=== PATIENT | male | born 1965 | race Caucasian/White ===

== ENCOUNTER → 2021-07-17 10:23 | Outpatient (REF) | payer BC, SELFPAY | LOC: ANHLAB 10:23 | PROVIDERS: PCP Family Medicine; Visit Provider Nurse Practitioner | DX: C44.311 Basal cell carcinoma of skin of nose (principal) | CPT/HCPCS: 88305; 88331 ==

== ENCOUNTER 2021-07-19 01:30 | Day surgery (SDC) | payer BC, SELFPAY ==
[2021-07-12 10:51] VITALS: BMI 34.5
--- NOTE | 2021-07-19 10:00 | P.PNAN_ITS ---
Anes - Initial Pre Proc Eval Procedure: Operation Date: 07/19/21 10:30 Proposed Procedures p Screening Colonoscopy - Tobi Tracy MD Date/Time: 07/19/21 10:00 Surgeon: Tobi Tracy MD Pre Op Diagnosis: neoplasm screening Patient Data Age: 55 Gender: M Height: 1.85 m Weight: 118.8 kg Allergies Allergy/AdvReac Type Severity Reaction Status Date / Time No Known Allergies Allergy Verified 07/17/21 10:19 Home Medications Medication Instructions Recorded Confirmed Type lisinopril 20 1 tablet PO DAILY #90 tablet 03/07/21 07/19/21 Rx mg-hydrochlorothiazide 12.5 mg tablet naproxen sodium 220 mg tablet 220 mg PO DAILY tablet 07/17/21 07/19/21 History Patient hx anesthesia problems: none Family hx anesthesia problems: none PMFSH Past Medical History Medical History Chronic left shoulder pain COPD (chronic obstructive pulmonary disease) Essential (primary) hypertension Family History Family History Mother Diabetes mellitus Social History Social History Smoking packs per day: 1 Smoking cigarettes per day: 20.0 Years smoked: 40 Smoking pack-years: 40.00 Smoking status: Current every day smoker Tobacco type: cigarettes Alcohol intake: current Substance use: never Substance use type: does not use Living arrangements: with family Additional living arrangements comments: Gender identity (if verbalized by the patient): Male Anes - Eval Final PreProcedure Day of Procedure 07/19/21 10:00 Patient weight: obese Heart: regular rate and rhythm Lungs: wheezes Airway: Mallampati scale class II and other (edentulous) Neurological: alert and oriented Last oral intake: >/= 8 hours ASA classification: III Emergent: no Anesthetic plan: proceed Anesthesia type and monitoring: general GIVS and standard monitoring Informed Consent: The patient's anesthetic plan and its attendant risks and b enefits were discussed with the patient/family/POA. Questions were solicited and answers provided to the satisfaction of the patient/family/POA.
[2021-07-19 10:01] VITALS: BP 155/80; PULSE 69; RESP 18; TEMP 36.6; O2SAT 97
[2021-07-19] MEDS: LACTATED RINGERS 1,000 ML 150 ML IV CONT (10:08)
--- NOTE | 2021-07-19 10:24 | PM.HPGS ---
History of Present Illness History of Present Illness Consent: Risks, benefits, and alternatives have been discussed and questions answered. Patient agrees to proceed with procedure. Chief complaint: neoplasm screening Narrative: Watson De Jesus is a 55 year old male here for first screening colonoscopy Review of Systems Constitutional: Constitutional: Denies headache(s) and Denies weakness Eyes: Eyes: Denies blurry vision ENT: Reports Normal hearing present, Denies headache(s) and Denies neck pain Cardiovascular: Cardiovascular: Denies chest pain and Denies dyspnea Respiratory: Respiratory: Denies dyspnea Gastrointestinal: Gastrointestinal: Reports no additional gastrointestinal complaints Genitourinary: Genitourinary: Denies dysuria Musculoskeletal: Musculoskeletal: Denies neck pain Integumentary/Breasts: Skin/Breast: Denies dry skin Neurologic: Reports Normal hearing present, Denies headache(s) and Denies weakness Psychiatric: Psychiatric: Denies anxiety Endocrine: Endocrine: Denies change in body appearance Hematologic/Lymphatic: Hematologic/Lymphatic: Denies easy bleeding Allergic/Immunologic: Allergic/Immunologic: Denies urticaria [facility] Past Medical History Medical History (Updated 07/19/21 @ 10:24 by Tobi Tracy MD) Chronic left shoulder pain Colon cancer screening COPD (chronic obstructive pulmonary disease) Essential (primary) hypertension Family History Family History Mother Diabetes mellitus Social History Social History Smoking packs per day: 1 Smoking cigarettes per day: 20.0 Years smoked: 40 Smoking pack-years: 40.00 Smoking status: Current every day smoker Tobacco type: cigarettes Alcohol intake: current Substance use: never Substance use type: does not use Living arrangements: with family Additional living arrangements comments: Gender identity (if verbalized by the patient): Male Meds Home Medications and Allergies Home Medications Medication Instructions Recorded Confirmed Type lisinopril 20 1 tablet PO DAILY #90 tablet 03/07/21 07/19/21 Rx mg-hydrochlorothiazide 12.5 mg tablet naproxen sodium 220 mg tablet 220 mg PO DAILY tablet 07/17/21 07/19/21 History Allergies Allergy/AdvReac Type Severity Reaction Status Date / Time No Known Allergies Allergy Verified 07/17/21 10:19 Vital Signs Vital Signs - 24 hr 07/19/21 10:01 Temperature 97.9 F Pulse Rate 69 Respiratory Rate 18 Blood Pressure 155/80 H Pulse Oximetry 97 Exam Const: General: comfortable and no acute distress HENMT: General nose exam: Normal nares present Eyes: General: appearance normal, both eyes and all related structures Neck: Neck: no JVD Resp: Auscultation: clear to auscultation bilaterally Cardio: Rate: regular rate Rhythm: regular rhythm GI: Inspection: non-distended GI Palp: Yes Soft to palpation Skin: General skin exam: normal color Neuro: General: gait normal Speech: normal speech Extrem: General: normal to inspection Psych: Mental Status: mental status grossly normal Assessment and Plan Assessment and plan (1) Colon cancer screening: Code(s): Z12.11 - Encounter for screening for malignant neoplasm of colon Status: Acute Assessment and Plan: colonoscopy
[2021-07-19 10:47] VITALS: BP 103/68; PULSE 59; RESP 20; O2SAT 97
[2021-07-19 10:57] VITALS: BP 106/70; PULSE 59; RESP 19; O2SAT 96
[2021-07-19 11:07] VITALS: BP 124/80; PULSE 57; RESP 21; O2SAT 96
== END 2021-07-19 11:20 | disposition home or self-care (01) ==
PROVIDERS: PCP Family Medicine; Visit Provider Internal Medicine Gastroenterology
PROC: 0DJD8ZZ Inspection of Lower Intestinal Tract, Via Natural or Artificial Opening Endoscopic (ICD-10-PCS; CPT 45378; principal; 2021-07-19 10:30)
DX: Z12.11 Encounter for screening for malignant neoplasm of colon (principal); K57.30 Diverticulosis of large intestine without perforation or abscess without bleeding; K64.8 Other hemorrhoids; K63.5 Polyp of colon; K64.4 Residual hemorrhoidal skin tags; J44.9 Chronic obstructive pulmonary disease, unspecified; I10 Essential (primary) hypertension; F17.210 Nicotine dependence, cigarettes, uncomplicated; E66.9 Obesity, unspecified; Z68.34 Body mass index [BMI] 34.0-34.9, adult
CPT/HCPCS: 45385; 88305; J2704; J7120

== ENCOUNTER 2022-08-06 07:22 | Outpatient (CLI) | payer BC, SELFPAY ==
--- NOTE | ~2022-08-06 | CT_ITS ---
EXAMINATION: CT lung screening DATE: 08/06/2022 07:47 INDICATION: Personal history nicotine dependence, current smoker with 45 pack year history TECHNIQUE: Computed tomography (CT) of the chest was performed without intravenous contrast. The dose -length product (DLP) was 217.69 mGy-cm. Automated exposure control and iterative reconstruction tech [id number] outdoors were employed. COMPARISON: 08/19/2018 FINDINGS: There is mild emphysema. There are groundglass opacities in a mid and lower lung zone distr ibution with slight worsening since the comparison examination. No suspicious pulmonary nodules are i dentified. No pleural effusion or pneumothorax. No pathologically enlarged thoracic lymph nodes are i dentified. The heart size is normal. There is calcified coronary artery atherosclerosis. Cholelithias is is noted. IMPRESSION: 1. Lung-RADS category 1S: Negative. Continue annual screening with noncontrast low-dose chest CT in 1 2 months. 2. Chronic interstitial lung disease with a mid and lower lung zone predominance with slight interval worsening. Differential is as previously described including nonspecific interstitial pneumonia (NSI P) and desquamative interstitial pneumonia (DIP). Reviewed, dictated and finalized at location B. IMPRESSION: 1. Lung-RADS category 1S: Negative. Continue annual screening with noncontrast low-dose chest CT in 12 months. 2. Chronic interstitial lung disease with a mid and lower lung zone predominanc e with slight interval worsening. Differential is as previously described inclu ding nonspecific interstitial pneumonia (NSIP) and desquamative interstitial pn eumonia (DIP).
--- NOTE | 2022-08-06 13:48 | WPDPFTINT ---
PFT Procedure Performed PFT Procedure Performed Spirometry with Pre/Post Bronchodilator Plethysmography (Lung Vol) Diffusing Cap (DLCO) Flow Vol Loop PFT Interpretation Lung volumes were measured with the body plethysmography method. Lung volumes are unremarkable. Spirometry showed diminished expiratory flow rates and a normal FEV1 to FVC ratio of 81%. Following administration of a bronchodilator there was no significant increase in expiratory flow rates. Lung diffusion capacity is moderately reduced at 47% predicted. The flow volume loop is unremarkable. The restrictive pattern on spirometry in the face of a normal total lung capacity is consistent with a nonspecific pattern. In comparison to previous study in 2018, the post bronchodilator FVC is now greater by approximately 200 mL as is the FEV1 by an similar amount. Lung diffusion capacity is essentially unchanged. Impression: Nonspecific pattern; With moderately reduced lung diffusion capacity.
--- NOTE | 2022-08-06 13:53 | WPDSIXMINUTE ---
Six Minute Walk Procedure Procedure Performed Pulmonary Stress Test (6 min walk) Six Minute Walk Six Minute Walk: This 6 minute walk test was carried out with the patient breathing ambient air. The pre-walk oxyhemoglobin saturation was 96 %. The patient walked over 304 m with no stops during testing. During the walk the oxyhemoglobin saturation remained in the range of 89% to 99%. The perceived dyspnea on the Syl scale at baseline was 2 and decreased to 3 at the end of testing. Impression: No evidence of significant oxyhemoglobin desaturation on this testing.
== END 2022-08-06 07:23 | disposition home or self-care (01) ==
PROVIDERS: PCP Family Medicine; Visit Provider Internal Medicine Pulmonary Disease
DX: Z12.2 Encounter for screening for malignant neoplasm of respiratory organs (principal); Z87.891 Personal history of nicotine dependence; R06.00 Dyspnea, unspecified; J40 Bronchitis, not specified as acute or chronic; J84.9 Interstitial pulmonary disease, unspecified
CPT/HCPCS: 71271; 94060; 94618; 94726; 94729

== ENCOUNTER 2022-09-17 11:42 | Outpatient (CLI) | payer BC, SELFPAY ==
[2022-09-17 18:42] LABS: Hemoglobin A1C 6.1 % (<5.7)
[2022-09-17 19:10] LABS: Vitamin D 25 Hydroxy 39.6 ng/mL
== END 2022-09-17 11:43 | disposition home or self-care (01) ==
LOC: ANHGOSHLAB 11:46
PROVIDERS: PCP Family Medicine; Visit Provider Family Medicine
DX: R73.03 Prediabetes (principal); E55.9 Vitamin D deficiency, unspecified
CPT/HCPCS: 36415; 82306; 83036

== ENCOUNTER 2023-01-03 16:43 | Outpatient (CLI) | payer BC, SELFPAY ==
--- NOTE | 2023-01-28 18:52 | WPDSLEEPSTUD ---
Sleep Study Date of Study: 01/03/23 Ordering Provider: Watson Shook MD Interpreting Physician: Yin Thomason MD Sleep Study Type: Polysomnogram Height: 1.85 m Weight: 118.388 kg Body Mass Index: 34.4 Neck Circumference (inches): 18 [place]: 8 Reason for Sleep Study Hypersomnolence Sleep History Watson De Jesus is a 57-year-old man with frequent loud snoring. He wakes up during the middle of the night. He has excessive daytime sleepiness. He rarely awakens from sleep feeling short of breath. He rarely awakens at night with heartburn, belching or coughing. he occasionally has trouble sleeping with a cold. He rarely wakes up gasping for breath at night. He occasionally has breathing problems at night observed by others. He rarely sweats excessively at night. He rarely notices his heart pounding or beating irregularly at night. He occasionally falls asleep during the day, occasionally falls asleep involuntarily, very rarely falls asleep while driving. He does not have loss of muscle tone with strong emotion. He rarely has daytime difficulties due to excessive sleepiness. He does not feel paralyzed on waking or falling asleep. He rarely has vivid dreamlike scenes on waking or falling asleep. He does not feel afraid to go to sleep. He rarely has nightmares. He rarely remembers his dreams. He occasionally has racing thoughts. He rarely feels sad or depressed. He occasionally has anxiety. He rarely has muscular tension or notices parts of his body jerking. He occasionally kicks at night. He rarely has crawling aching feelings in his legs. He rarely has any kind of leg pain at night. He does not have morning jaw pain or grind his teeth during sleep. He occasionally is bothered by pain during the day. He rarely is awakened by pain at night. He occasionally wakes up feeling stiff in the morning. He rarely wakes up with sore achy muscles are pain in the neck and spine. Normal bedtime varies. He has a rotating shift work schedule weekly. He does take naps in the afternoon or evening. A short nap may be refreshing. He feels better in the evening compared to other times of day. In general it takes between 5 minutes to 20 minutes to fall asleep. He wakes once at night and stays awake between 10 minutes and 2 hours. While awake, uses the bathroom, gets a drink and possibly smokes a cigarette. He estimates getting 4-10 hours of sleep at night. Habits: Tobacco 1 pack a day. Caffeine daily. Alcohol 1-2 per month. No recreational substance. [facility] Past Medical History Medical History Chronic left shoulder pain COPD (chronic obstructive pulmonary disease) Essential (primary) hypertension Lesion of nose Prediabetes Surgical History Surgical History History of Mohs micrographic surgery for skin cancer 06/2021 Family History Family History Mother Diabetes mellitus Social History Social History Smoking packs per day: 1 Smoking cigarettes per day: 20.0 Years smoked: 40 Smoking pack-years: 40.00 Smoking status: Current every day smoker Tobacco type: cigarettes Alcohol intake: current Substance use: never Substance use type: does not use Living arrangements: with family Additional living arrangements comments: Occupation/Education: occupation Gender identity (if verbalized by the patient): Male Sexual Orientation (if Verbalized by the Patient): Straight or Heterosexual Medications Home Medications Medication Instructions Recorded Confirmed Type naproxen sodium 220 mg tablet 220 mg PO DAILY 07/17/21 09/17/22 History albuterol sulfate 90 mcg/actuation 2 inh inhalation Q4H PRN shortness 06/21/22 09/17/22 Rx aerosol inhaler of breath or wheezing #8.5 grams
[2023-01-28 19:28] VITALS: BMI 34.4
== END 2023-01-04 06:49 | disposition home or self-care (01) ==
LOC: ANHCSM 16:44
PROVIDERS: PCP Family Medicine; Visit Provider Internal Medicine Pulmonary Disease
DX: G47.61 Periodic limb movement disorder (principal); R06.83 Snoring; G47.10 Hypersomnia, unspecified; J44.9 Chronic obstructive pulmonary disease, unspecified; I10 Essential (primary) hypertension; F17.210 Nicotine dependence, cigarettes, uncomplicated
CPT/HCPCS: 95810

== ENCOUNTER 2023-03-25 11:53 | Outpatient (CLI) | payer BC, SELFPAY ==
[2023-03-25 13:45] LABS: Basophils Percent Auto 0.5 % (0.2-1.2); Eosinophils Absolute Auto 0.1 K/mm3 (0-0.3); Hematocrit 43.1 % (42.0-52.0); Hemoglobin 14.1 g/dL (14.0-18.0); Immature Granulocyte Absolute 0.01 K/mm3 (0.00-0.031); Immature Granulocyte Percent A 0.2 % (0-0.5); Mean Corpuscular HGB Conc 32.7 g/dl (32-36); Mean Corpuscular Hemoglobin 30.3 pg (26-34); Mean Corpuscular Volume 92.5 fl (80-100); Mean Platelet Volume 9.5 fl (7.4-10.4); Monocytes Absolute Auto 0.3 K/mm3 (0.1-0.6); Monocytes Percent Auto 6.2 % (2.6-8.5); Neutrophils Absolute Auto 3.8 K/mm3 (1.3-6.7); Neutrophils Percent Auto 69.1 % (45.5-73.1); Platelet Count Result 183 k/mm3 (150-375); Red Blood Count 4.66 M/mm3 (4.6-6.20); Red Cell Distribution Width 13.7 % (11.5-14.5); White Blood Count 5.5 K/mm3 (4.5-10.0)
[2023-03-25 13:59] LABS: Alanine Aminotransferase 20 U/L (6-50); Alkaline Phosphatase 70 U/L (38-126); Anion Gap 3 mmol/L (8-16); Aspartate Amino Transferase 38 U/L (17-59); Bilirubin,Total 0.8 mg/dL (0.2-1.3); Blood Urea Nitrogen 25 mg/dL (9-20); Calcium 8.8 mg/dL (8.4-10.2); Carbon Dioxide 32 mmol/L (22-30); Chloride 102 mmol/L (98-107); Cholesterol 151 mg/dL (0-200); Estimated Glomerular Filt Rate > 60; Glucose 95 mg/dL (65-110); HDL Direct 32 mg/dL; Potassium 3.7 mmol/L (3.4-5.0); Sodium 137 mmol/L (137-145); Triglycerides 83 mg/dL (<150)
[2023-03-25 14:11] LABS: LDL Cholesterol Direct 87 mg/dL
[2023-03-25 14:15] LABS: Vitamin D 25 Hydroxy 37.3 ng/mL
[2023-03-25 14:27] LABS: Prostate Specific Antigen 0.7 ng/mL (< OR = 4.0); Thyroid Stimulating Hormone 0.553 uIU/mL (0.465-4.680)
== END 2023-03-25 11:54 | disposition home or self-care (01) ==
LOC: ANHGOSHLAB 11:54
PROVIDERS: PCP Family Medicine; Visit Provider Nurse Practitioner Family
DX: Z00.00 Encounter for general adult medical examination without abnormal findings (principal); I10 Essential (primary) hypertension; E55.9 Vitamin D deficiency, unspecified; Z12.5 Encounter for screening for malignant neoplasm of prostate
CPT/HCPCS: 36415; 80053; 80061; 82306; 84153; 84443; 85025; G0103

== ENCOUNTER 2023-10-07 13:10 | Outpatient (CLI) | payer BC, SELFPAY ==
[2023-10-07 17:37] LABS: Hemoglobin A1C 5.8 % (<5.7)
[2023-10-07 18:22] LABS: Basophils Percent Auto 0.5 % (0.2-1.2); Eosinophils Absolute Auto 0.1 K/mm3 (0-0.3); Eosinophils Percent Auto 1.6 % (0-4.4); Hematocrit 46.1 % (42.0-52.0); Hemoglobin 15.2 g/dL (14.0-18.0); Immature Granulocyte Absolute 0.01 K/mm3 (0.00-0.031); Immature Granulocyte Percent A 0.2 % (0-0.5); Lymphocytes Absolute Auto 1.07 K/mm3 (0.9-3.2); Lymphocytes Percent Auto 18.4 % (18.3-44.2); Mean Corpuscular Hemoglobin 30.5 pg (26-34); Mean Corpuscular Volume 92.6 fl (80-100); Monocytes Absolute Auto 0.4 K/mm3 (0.1-0.6); Monocytes Percent Auto 6.6 % (2.6-8.5); Neutrophils Absolute Auto 4.2 K/mm3 (1.3-6.7); Neutrophils Percent Auto 72.7 % (45.5-73.1); Platelet Count Result 178 k/mm3 (150-375); Red Blood Count 4.98 M/mm3 (4.6-6.20); Red Cell Distribution Width 13.2 % (11.5-14.5); White Blood Count 5.8 K/mm3 (4.5-10.0)
[2023-10-07 18:34] LABS: Alanine Aminotransferase 15 U/L (6-50); Albumin Level 4.2 g/dL (3.5-5.1); Alkaline Phosphatase 62 U/L (38-126); Anion Gap 9 mmol/L (8-16); Aspartate Amino Transferase 30 U/L (17-59); Bilirubin,Total 0.9 mg/dL (0.2-1.3); Blood Urea Nitrogen 19 mg/dL (9-20); Calcium 9.4 mg/dL (8.4-10.2); Carbon Dioxide 27 mmol/L (22-30); Chloride 102 mmol/L (98-107); Cholesterol 166 mg/dL (0-200); Estimated Glomerular Filt Rate > 60; Glucose 96 mg/dL (65-110); HDL Direct 32 mg/dL; Potassium 3.9 mmol/L (3.4-5.0); Sodium 138 mmol/L (137-145); Triglycerides 164 mg/dL (<150)
[2023-10-07 18:45] LABS: LDL Cholesterol Direct 94 mg/dL
[2023-10-07 19:06] LABS: Prostate Specific Antigen 0.9 ng/mL (< OR = 4.0)
== END 2023-10-07 13:11 | disposition home or self-care (01) ==
LOC: ANHGOSHLAB 13:11
PROVIDERS: PCP Family Medicine; Visit Provider Nurse Practitioner Family
DX: Z00.00 Encounter for general adult medical examination without abnormal findings (principal); R73.03 Prediabetes; I10 Essential (primary) hypertension; Z12.5 Encounter for screening for malignant neoplasm of prostate; Z13.220 Encounter for screening for lipoid disorders; Z13.29 Encounter for screening for other suspected endocrine disorder
CPT/HCPCS: 36415; 80053; 80061; 83036; 84153; 84443; 85025; G0103

== ENCOUNTER 2024-11-11 10:55 | Outpatient (CLI) | payer BC, SELFPAY ==
[2024-11-11 18:46] LABS: Basophils Percent Auto 0.5 % (0.2-1.2); Eosinophils Absolute Auto 0.1 K/mm3 (0-0.3); Eosinophils Percent Auto 1.6 % (0-4.4); Hematocrit 45.2 % (42.0-52.0); Hemoglobin 14.6 g/dL (14.0-18.0); Immature Granulocyte Absolute 0.01 K/mm3 (0.00-0.031); Immature Granulocyte Percent A 0.1 % (0-0.5); Lymphocytes Absolute Auto 1.18 K/mm3 (0.9-3.2); Lymphocytes Percent Auto 15.6 % (18.3-44.2); Mean Corpuscular HGB Conc 32.3 g/dl (32-36); Mean Corpuscular Hemoglobin 31.1 pg (26-34); Mean Corpuscular Volume 96.4 fl (80-100); Monocytes Absolute Auto 0.5 K/mm3 (0.1-0.6); Monocytes Percent Auto 6.3 % (2.6-8.5); Neutrophils Absolute Auto 5.8 K/mm3 (1.3-6.7); Neutrophils Percent Auto 75.9 % (45.5-73.1); Platelet Count Result 166 k/mm3 (150-375); Red Blood Count 4.69 M/mm3 (4.6-6.20); Red Cell Distribution Width 13.7 % (11.5-14.5); White Blood Count 7.6 K/mm3 (4.5-10.0)
[2024-11-11 19:12] LABS: Alanine Aminotransferase 13 U/L (6-50); Alkaline Phosphatase 70 U/L (38-126); Anion Gap 2 mmol/L (4-12); Aspartate Amino Transferase 44 U/L (17-59); Bilirubin,Total 0.7 mg/dL (0.2-1.3); Blood Urea Nitrogen 28 mg/dL (9-20); Calcium 9.1 mg/dL (8.4-10.2); Carbon Dioxide 35 mmol/L (22-30); Chloride 103 mmol/L (98-107); Cholesterol 157 mg/dL (0-200); Estimated Glomerular Filt Rate > 60; Glucose 95 mg/dL (65-110); HDL Direct 35 mg/dL; Potassium 4.1 mmol/L (3.4-5.0); Sodium 140 mmol/L (137-145); Triglycerides 150 mg/dL (<150)
[2024-11-11 19:27] LABS: LDL Cholesterol Direct 89 mg/dL
[2024-11-11 19:28] LABS: Vitamin D 25 Hydroxy 43.7 ng/mL
[2024-11-11 21:49] LABS: Prostate Specific Antigen 0.8 ng/mL (< OR = 4.0)
== END 2024-11-11 10:56 | disposition home or self-care (01) ==
LOC: ANHGOSHLAB 10:56
PROVIDERS: PCP Family Medicine; Visit Provider Nurse Practitioner Family
DX: Z00.00 Encounter for general adult medical examination without abnormal findings (principal); I10 Essential (primary) hypertension; R73.03 Prediabetes; E55.9 Vitamin D deficiency, unspecified; Z12.5 Encounter for screening for malignant neoplasm of prostate
CPT/HCPCS: 36415; 80053; 80061; 82306; 83036; 84153; 84443; 85025; G0103

== ENCOUNTER 2025-04-15 13:34 | Emergency (ER) | payer BC, SELFPAY ==
--- NOTE | ~2025-04-15 | CT_ITS ---
CT soft tissue neck wo con Ordering provider: Radha Yip PA-C History: 59 years Male with . hemoptysis, pain in throat . Comparison: None. Technique: CT soft tissues neck was performed with contrast. . Automated exposure control and iterat bharati reconstruction technique were employed. The dose-length product was 625.90 mGy-cm. 100 mL Omnipaq ue 350 was given IV. Findings: LOWER HEAD: The visualized brain parenchyma, optic globes/orbits and mastoids are normal. The visua lized paranasal sinuses are well aerated. SALIVARY GLANDS: Normal. THYROID: Normal. SUPRAHYOID DEEP SPACES: Parapharyngeal lymph nodes are seen with the largest measures 1.3 cm on the l eft side. CAROTID ARTERIES: Moderate to severe narrowing of the left carotid artery. JUGULAR VEINS: Normal. TONSILS: Normal. ORAL CAVITY: Partially obscured by dental amalgam but normal as visualized. PHARYNX, LARYNX AND TRACHEA: Patent and normal. No prevertebral soft tissue swelling. SUPERFICIAL SOFT TISSUES: Normal. No lymphadenopathy or neck mass. THORACIC INLET/VISUALIZED UPPER CHEST: Paraseptal emphysematous changes are seen in the lungs. SKELETAL: Age appropriate degenerative changes. IMPRESSION: 1. Moderate to severe narrowing of the left carotid artery. Further evaluation advised. 2. Parapharyngeal lymph nodes with the largest measures 1.3 cm. 3. Emphysematous changes of the lungs. Reviewed, dictated and finalized at location A.
--- NOTE | ~2025-04-15 | CT_ITS ---
EXAMINATION: CTA chest PE protocol DATE: 04/15/2025 16:26 INDICATION: Hemoptysis TECHNIQUE: Computed tomography (CT) pulmonary angiogram of the chest was performed with 100 mL Omnipa que-350 intravenous contrast. Additional 3D reconstructions utilizing coronal maximum intensity proje ction (MIP) were performed. Automated exposure control and iterative reconstruction technique were em ployed. The dose-length product was 963.33 mGy-cm. COMPARISON: 08/06/2022 and 08/19/2018 FINDINGS: No pulmonary embolism. Interval progression in peripheral and lower lung predominant irregular septal line thickening and groundglass opacities. There are some associated peripheral small cavitary lung disease this could represent either mild paraseptal emphysema superimposed over nonspecific interstit ial pneumonia (NSIP) pattern chronic initial lung disease versus more likely honeycombing in the sett ing of usual interstitial pneumonia (UIP) pattern chronic interstitial lung disease. No pleural effus ion. Heart size is normal. Atherosclerotic coronary artery calcium. No pericardial effusion. Thoracic aorta is normal in caliber with no dissection. No pathologically enlarged thoracic lymphadenopathy. Small sliding-type hiatal hernia. There is prominent wall thickening of the decompressed gallbladder without surrounding from trace stranding suggestive of chronic cholecystitis. Bones are unremarkable . IMPRESSION: 1. No pulmonary embolism. 2. Significant interval progression in chronic interstitial lung disease most likely usual interstiti al pneumonia (UIP) pattern versus less likely nonspecific interstitial pneumonia (NSIP) pattern chron ic initial lung disease with superimposed mild paraseptal emphysema. 3. Small sliding-type hiatal hernia. Reviewed, dictated and finalized at location A. IMPRESSION: 1. No pulmonary embolism. 2. Significant interval progression in chronic interstitial lung disease most l ikely usual interstitial pneumonia (UIP) pattern versus less likely nonspecific interstitial pneumonia (NSIP) pattern chronic initial lung disease with superi mposed mild paraseptal emphysema. 3. Small sliding-type hiatal hernia.
--- OUTSIDE RECORDS SUMMARY | 2025-04-15 13:37 | XMS_ITS | Encounter Summary ---
Author Organization [facility] Address [address] [place] [address] Care Team Providers Care Field Test Engineer Name Role Phone Hyun Jiang MD Primary Care Provider Encounter Details Date Type Department Care Team (Late st Contact Info) Description 04/27/[address] [facility] [address] [place] [phone] Ez Caba MD [address] [address] Social History Tobacco Use Types Packs/Day Years Used Date Smoking Tobacco: Never Assessed Sex and Gender Information Value Date Recorded Sex Assigned at Not on file Legal Sex Male 3:34 PM CDT Gender Identity Not on file Sexual Orientation Not on file documented as of this encounter Plan of Treatment Not on file documented as of this encounter Procedures Procedure Name Priority Date/Time Associated Diagnosis Comments DERMATOPATHOLOGY Routine 04/25/2021 3:33 AM CDT documented in this encounter Results * DERMATOPATHOLOGY (04/25/2021 3:33 AM CDT) Case Report Dermatopathology Report Case: [id number] Authorizing Provider: Ez aCba MD Collected: 04/25/2021 03:33 AM Ordering Location: [facility] Received: 04/27/2021 06:09 AM Pathologist: Kathryn Huerta MD Specimen: Skin, nasal dorsum 2:24 PM CDT DERMATOPATHOLOGY LABORATORY Final Diagnosis Specimen A. SKIN, nasal dorsum: BASAL CELL CARCINOMA, NODULAR TYPE (C44.311) 1 2:24 PM CDT DERMATOPATHOLOGY LABORATORY at 1424 CDT Clinical History [facility]. Path# [id number]. 1 2:24 PM CDT DERMATOPATHOLOGY LABORATORY Gross Description Specimen A: Received is one formalin filled container labeled with the patient's name and designated nasal dorsum. The specimen consists of a shave biopsy measuring [id number]. Jar 0. 1 2:24 PM CDT DERMATOPATHOLOGY LABORATORY Microscopic Description Specimen A. SKIN, nasal dorsum: Within the dermis there are aggregates of basaloid cells with a high nuclear to cytoplasmic ratio and peripheral palisading. 1 2:24 PM CDT DERMATOPATHOLOGY LABORATORY Disclaimer An external and internal positive and negative controls are appropriate for the histochemical, immunohistochemical and immunofluorescence stain(s) in this case (if any), except where stated explicitly. The performance characteristics of the stain(s) cited in this report were developed and its performance characteristic determined by the Dermatopathology Laboratory at [facility], directed by Dr. Olivia Muro. These tests need not be, and therefore are not, approved by the [place] Food and Drug Administration. The tests are used for clinical purposes. Billing Codes Specimen Charges Stain Charges 99847 1 1 2:24 PM CDT DERMATOPATHOLOGY LABORATORY Embedded Images 1 2:24 PM CDT DERMATOPATHOLOGY LABORATORY Pathology/Cytolo gy TISSUE SPECIMEN FROM SKIN / Unknown 04/25/2021 3:33 AM CDT 04/27/2021 6:09 AM CDT us Ez Caba MD LAB - PATHOLOGY/CYTOLOGY ORDER SABINA Final Result DERMATOPATHOLOGY LABORATORY [facility] - Department of Dermatology [address], [address] [phone] documented in this encounter Visit Diagnoses Not on filedocumented in this encounter Care Teams Field Test Engineer Relationship Specialty Start Date End Date Hyun Jiang MD [address] [place] [address] PCP - General 07/27/21 documented as of this encounter
--- OUTSIDE RECORDS SUMMARY | 2025-04-15 13:37 | XMS_ITS | Clinical Summary ---
Author Organization [facility] Address [address] [place] [address] Care Team Providers Care Community Affairs Director Name Role Phone Hyun Jiang MD Primary Care Provider Source Comments [facility],non-owned Affiliates and Associated Physician Practices is amultiple site organization consisting of ambulatory clinics and hospital sitesin [place], [place], [place] and [place]. This disclosure is being madepursuant to the Care Everywhere program and may not contain all information available regarding this patient. Last updated 18.[facility] Social History Tobacco Use Types Packs/Day Years Used Date Smoking Tobacco: Never Assessed Sex and Gender Information Value Date Recorded Sex Assigned at Not on file Legal Sex Male 3:34 PM CDT Gender Identity Not on file Sexual Orientation Not on file Plan of Treatment Health Maintenance Due Date Last Done Comments COLOGUARD (AGES 45-75) - COL ON CA SCREENING 1965 COLON MONITORING 1965 COLONOSCOPY - COLON CA SCREENING 1965 CT COLONOGRAPHY - COLON CA SCREENING 1965 Colorectal Cancer Screening 1965 FIT - COLON CA SCREENING 1965 FLEX SIG - COLON CA SCREENING 1965 LIPID TESTING 1965 HIV SCREENING 1980 HEPATITIS C SCREENING 08/24/1983 DTAP/TDAP/TD VACCINES (1 - Tdap) 1984 HEPATITIS B VACCINE (1 of 3 - 19+ 3-dose series) 1984 PNEUMOCOCCAL VACCINE 50+ (1 of 1 - PCV) 2015 ZOSTER VACCINE (1 of 2) 2015 COVID-19 VACCINE ( - 2023-2 5 season) 2024 DEPRESSION SCREENING 11/25/2024 INFLUENZA VACCINE (Season Ended) 2025 HIB VACCINE Aged Out No longer eligi ble based on patient's age to complete this topic HPV VACCINE Aged Out No longer eligi ble based on patient's age to complete this topic MENINGOCOCCAL (Group B) VACC INE SHARED DECISION-MAKING Aged Out No longer eligibl e based on patient's age to complete this topic MENINGOCOCCAL GROUPS A/C/Y/W VACCINE Aged Out No longer eligible b ased on patient's age to complete this topic Care Teams Community Affairs Director Relationship Specialty Start Date End Date Hyun Jiang MD [address] [place] [address] PCP - General 07/27/21
[2025-04-15 13:50] VITALS: BP 132/91; PULSE 69; RESP 16; TEMP 36.4; O2SAT 98
--- NOTE | 2025-04-15 15:21 | ED.GENADULT ---
HPI - General Adult General Chief complaint: Unspecified <Radha Yip PA-C - Last Filed: 04/15/25 15:34> Stated complaint: Coughing up bright red blood x 1hr <Radha Yip PA-C - Last Filed: 04/15/25 15:34> Time Seen by Provider: 04/15/25 15:21 <DAJA Rausch Last Filed: 04/15/25 15:34> Focused HPI: Patient is a 59 y/o male, with PMH of COPD/lung fibrosis still smoking, who presents to the ED with c/o hemoptysis. Patient reports hx of chronic cough and states he began coughing today approx 1 hour ago and has been coughing up moderate amount of bright red blood. Denies seeing blood clots. States he has hx of similar episode of this in the past a few years ago, was seen here. Per records, CT imaging 2018 showed no PE, bronchial plugging r/t pulmonary hemorrhage. Patient is not on any anticoagulation. Denies SOB. Denies N/V. Denies CP. Denies dizziness/lightheadedness. GENERAL: Appears older than stated age, obese with BMI of 35.2, and in no acute distress. HEAD: Normocephalic, atraumatic. CHEST: Clear to auscultation. ?No respiratory distress. Occasional faint expiratory wheezing. Respirations are nonlabored. HEART: Regular rate and rhythm.? NEURO: ?Alert and oriented x3. Patient screened in triage and initial orders placed.? ?Additional care and disposition to be based upon?diagnostic testing and treatment. <Radha Yip PA-C - Last Filed: 04/15/25 15:34> Source: patient and old records reviewed <Radha Yip PA-C - Last Filed: 04/15/25 15:34> Mode of arrival: ambulatory <Radha Yip PA-C - Last Filed: 04/15/25 15:34> Limitations: no limitations <DAJA Rausch Last Filed: 04/15/25 15:34> History of Present Illness HPI narrative: Agree with HPI <Jax Engel MD - Last Filed: 04/15/25 17:47> Related Data Home medications: Home Medications ?Medication ?Instructions ?Recorded ?Confirmed ?Last Taken ?Type naproxen sodium 220 mg tablet 220 mg PO DAILY 07/17/21 10/07/24 07/17/21 History tiotropium bromide 2.5 inhalation 10/07/24 10/07/24 Unknown History mcg/actuation mist for inhalation (Spiriva Respimat) <Radha Yip PA-C - Last Filed: 04/15/25 15:34> Allergies/adverse reactions: Allergies Allergy/AdvReac Type Severity Reaction Status Date / Time No Known Allergies Allergy Verified 04/15/25 13:36 <Radha Yip PA-C - Last Filed: 04/15/25 15:34> Review of Systems Review of Systems: All systems reviewed & are unremarkable except as noted in HPI and below <Jax Engel MD - Last Filed: 04/15/25 17:47> Constitutional: Constitutional: Reports no additional constitutional complaints <Jax Engel MD - Last Filed: 04/15/25 17:47> ENT: Reports system reviewed and no additional complaints, except as documented <Jax Engel MD - Last Filed: 04/15/25 17:47> Cardiovascular: Cardiovascular: Reports no additional cardiovascular complaints <Jax Engel MD - Last Filed: 04/15/25 17:47> Respiratory: Respiratory: Reports no additional respiratory complaints <Jax Engel MD - Last Filed: 04/15/25 17:47> Gastrointestinal: Gastrointestinal: Reports no additional gastrointestinal complaints <Jax Engel MD - Last Filed: 04/15/25 17:47> [facility] Past Medical History Medical History: Medical History Chronic left shoulder pain COPD (chronic obstructive pulmonary disease) Essential (primary) hypertension Lesion of nose Prediabetes Vitamin D deficiency (~02/2022) <Radha Yip PA-C - Last Filed: 04/15/25 15:34> Surgical History Surgical History: Surgical History History of Mohs micrographic surgery for skin cancer 06/2021 <Radha Yip PA-C - Last Filed: 04/15/25 15:34> Family History Family History: Family History Mother Diabetes mellitus <Radha Yip PA-C - Last Filed: 04/15/25 15:34> Social History Social History: Social History Social History: Watson works at [employer]. Smoking packs per day: 1 Smoking cigarettes per day: 20.0 Years smoked: 41 Smoking pack-years: 41.00 Smoking status: Current every day smoker Tobacco type: cigarettes Alcohol intake: current Substance use: never Substance use type: does not use Lack of Transportation: No Lack of Food: Never True Current Housing: I Have Housing Concerned About Future Housing: No Difficulty Paying Gas/Electric Bills: No Difficulty Paying for Meds: No Currently Unemployed: No Education: High School Diploma/GED Difficulty w/ Childcare or Family Care: No Living arrangements: with family Additional living arrangements comments: Occupation/Education: occupation Gender identity (if verbalized by the patient): Male Sexual Orientation (if Verbalized by the Patient): Straight or Heterosexual Agree to blood products: Yes <Radha Yip PA-C - Last Filed: 04/15/25 15:34> Exam Narrative: GENERAL: Well-appearing, well-nourished, and in no acute distress. HEAD: Normocephalic, atraumatic. EYES: PERRL and EOMI. ENT: Nares clear, no rhinorrhea or epistaxis. Mucous membranes moist. Normal appearing posterior oropharynx. NECK: Supple. CHEST: Clear to auscultation. No respiratory distress. HEART: Regular rate and rhythm. Normal peripheral pulses. EXTREMITIES: Normal range of motion. No edema. NEURO: Alert and oriented x3. PSYCH: Normal mood and affect. <Jax Engel MD - Last Filed: 04/15/25 17:47> Course Course Emergency Course: Discussed with ENT. They will see patient in office tomorrow to do direct visualization of the nasal airway and possibly the cords to make sure there are no areas of bleeding. Will cover with oral antibiotics in case he has a lung infection causing some hemoptysis. This seems to be mode of the long and how he describes the sensation of something back of his throat. He has coughed up some dark clotted blood and no longer has bright red blood. He is comfortable going home. Discussed using humidified air. <Jax Engel MD - Last Filed: 04/15/25 17:47> Vital Signs Vital signs: Vital Signs Temperature 97.6 F 04/15/25 13:50 Pulse Rate 69 04/15/25 13:50 Respiratory Rate 16 04/15/25 13:50 Blood Pressure 132/91 H 04/15/25 13:50 Pulse Oximetry 98 04/15/25 13:50 Oxygen Delivery Room Air 04/15/25 13:50 Temperature 97.6 F 04/15/25 13:50 Pulse Rate 64 04/15/25 16:37 Respiratory Rate 14 04/15/25 16:37 Blood Pressure 134/89 04/15/25 16:37 Pulse Oximetry 99 04/15/25 16:37 Oxygen Delivery Room Air 04/15/25 13:50 <Radha Yip PA-C - Last Filed: 04/15/25 15:34> Vital Signs Temperature 97.6 F 04/15/25 13:50 Pulse Rate 69 04/15/25 13:50 Respiratory Rate 16 04/15/25 13:50 Blood Pressure 132/91 H 04/15/25 13:50 Pulse Oximetry 98 04/15/25 13:50 Oxygen Delivery Room Air 04/15/25 13:50 Temperature 97.6 F 04/15/25 13:50 Pulse Rate 64 04/15/25 16:37 Respiratory Rate 14 04/15/25 16:37 Blood Pressure 134/89 04/15/25 16:37 Pulse Oximetry 99 04/15/25 16:37 Oxygen Delivery Room Air 04/15/25 13:50 <Jax Engel MD - Last Filed: 04/15/25 17:47> Medical Decision Making MDM Narrative Medical decision making narrative: MSE by MANOLO in triage. <Radha Yip PA-C - Last Filed: 04/15/25 15:34> Vital Signs Vital Signs: Vital Signs Temperature 97.6 F 04/15/25 13:50 Pulse Rate 69 04/15/25 13:50 Respiratory Rate 16 04/15/25 13:50 Blood Pressure 132/91 H 04/15/25 13:50 Pulse Oximetry 98 04/15/25 13:50 Oxygen Delivery Room Air 04/15/25 13:50 Temperature 97.6 F 04/15/25 13:50 Pulse Rate 64 04/15/25 16:37 Respiratory Rate 14 04/15/25 16:37 Blood Pressure 134/89 04/15/25 16:37 Pulse Oximetry 99 04/15/25 16:37 Oxygen Delivery Room Air 04/15/25 13:50 <Radha Yip PA-C - Last Filed: 04/15/25 15:34> Vital Signs Temperature 97.6 F 04/15/25 13:50 Pulse Rate 69 04/15/25 13:50 Respiratory Rate 16 04/15/25 13:50 Blood Pressure 132/91 H 04/15/25 13:50 Pulse Oximetry 98 04/15/25 13:50 Oxygen Delivery Room Air 04/15/25 13:50 Temperature 97.6 F 04/15/25 13:50 Pulse Rate 64 04/15/25 16:37 Respiratory Rate 14 04/15/25 16:37 Blood Pressure 134/89 04/15/25 16:37 Pulse Oximetry 99 04/15/25 16:37 Oxygen Delivery Room Air 04/15/25 13:50 <Jax Engel MD - Last Filed: 04/15/25 17:47> Lab Data Result diagrams: 04/15/25 15:39 04/15/25 15:39 <Radha Yip PA-C - Last Filed: 04/15/25 15:34> Labs: Lab Results 04/15/25 Range/Units 15:39 WBC 7.8 (4.5-10.0) K/mm3 RBC 5.05 (4.6-6.20) M/mm3 Hgb 15.4 (14.0-18.0) g/dL Hct 46.9 (42.0-52.0) % MCV 92.9 (80-100) fl MCH 30.5 (26-34) pg MCHC 32.8 (32-36) g/dl RDW 13.2 (11.5-14.5) % Plt Count 215 (150-375) k/mm3 MPV 9.1 (7.4-10.4) fl Immature Gran % (Auto) 0.4 (0-0.5) % Neut % (Auto) 76.6 H (45.5-73.1) % Lymph % (Auto) 15.2 L (18.3-44.2) % [place] % (Auto) 6.0 (2.6-8.5) % Eos % (Auto) 1.3 (0-4.4) % Baso % (Auto) 0.5 (0.2-1.2) % Lymph # (Auto) 1.18 (0.9-3.2) K/mm3 [place] # (Auto) 0.5 (0.1-0.6) K/mm3 Eos # (Auto) 0.1 (0-0.3) K/mm3 Baso # (Auto) 0.0 (0.0-0.1) K/mm3 Abs Immat Gran (auto) 0.03 (0.00-0.031) K/mm3 Absolute Neuts (auto) 6.0 (1.3-6.7) K/mm3 Absolute Nucleated RBC 0.000 (0.0-0.012) K/mm3 Nucleated RBC % 0.0 (0.0-0.2) % PT 14.9 H (11.1-14.7) Seconds INR 1.1 APTT 35.8 (22.3-36.8) Seconds Sodium 137 (137-145) mmol/L Potassium 4.3 (3.4-5.0) mmol/L Chloride 101 (98-107) mmol/L Carbon Dioxide 32 H (22-30) mmol/L Anion Gap 4 (4-12) mmol/L BUN 25 H (9-20) mg/dL Creatinine 1.01 (0.7-1.3) mg/dL Estim Creat Clear Calc 95 ml/min Estimated GFR > 60 (59 - ) Glucose 105 (65-110) mg/dL Calcium 9.1 (8.4-10.2) mg/dL Total Bilirubin 0.8 (0.2-1.3) mg/dL AST 29 (17-59) U/L ALT 18 (6-50) U/L Alkaline Phosphatase 65 (38-126) U/L Troponin I < 0.012 (0.000-0.034) ng/mL NT-Pro-B Natriuret Pep 100 (19.9-100) pg/mL Total Protein 8.0 (6.3-8.2) g/dL Albumin 4.3 (3.5-5.1) g/dL <Radha Yip PA-C - Last Filed: 04/15/25 15:34> Lab Results 04/15/25 Range/Units 15:39 WBC 7.8 (4.5-10.0) K/mm3 RBC 5.05 (4.6-6.20) M/mm3 Hgb 15.4 (14.0-18.0) g/dL Hct 46.9 (42.0-52.0) % MCV 92.9 (80-100) fl MCH 30.5 (26-34) pg MCHC 32.8 (32-36) g/dl RDW 13.2 (11.5-14.5) % Plt Count 215 (150-375) k/mm3 MPV 9.1 (7.4-10.4) fl Immature Gran % (Auto) 0.4 (0-0.5) % Neut % (Auto) 76.6 H (45.5-73.1) % Lymph % (Auto) 15.2 L (18.3-44.2) % [place] % (Auto) 6.0 (2.6-8.5) % Eos % (Auto) 1.3 (0-4.4) % Baso % (Auto) 0.5 (0.2-1.2) % Lymph # (Auto) 1.18 (0.9-3.2) K/mm3 [place] # (Auto) 0.5 (0.1-0.6) K/mm3 Eos # (Auto) 0.1 (0-0.3) K/mm3 Baso # (Auto) 0.0 (0.0-0.1) K/mm3 Abs Immat Gran (auto) 0.03 (0.00-0.031) K/mm3 Absolute Neuts (auto) 6.0 (1.3-6.7) K/mm3 Absolute Nucleated RBC 0.000 (0.0-0.012) K/mm3 Nucleated RBC % 0.0 (0.0-0.2) % PT 14.9 H (11.1-14.7) Seconds INR 1.1 APTT 35.8 (22.3-36.8) Seconds Sodium 137 (137-145) mmol/L Potassium 4.3 (3.4-5.0) mmol/L Chloride 101 (98-107) mmol/L Carbon Dioxide 32 H (22-30) mmol/L Anion Gap 4 (4-12) mmol/L BUN 25 H (9-20) mg/dL Creatinine 1.01 (0.7-1.3) mg/dL Estim Creat Clear Calc 95 ml/min Estimated GFR > 60 (59 - ) Glucose 105 (65-110) mg/dL Calcium 9.1 (8.4-10.2) mg/dL Total Bilirubin 0.8 (0.2-1.3) mg/dL AST 29 (17-59) U/L ALT 18 (6-50) U/L Alkaline Phosphatase 65 (38-126) U/L Troponin I < 0.012 (0.000-0.034) ng/mL NT-Pro-B Natriuret Pep 100 (19.9-100) pg/mL Total Protein 8.0 (6.3-8.2) g/dL Albumin 4.3 (3.5-5.1) g/dL <Jax Engel MD - Last Filed: 04/15/25 17:47> Imaging Data Radiologist's impression: ITS Impressions Chest CTA 04/15/25 16:33 IMPRESSION: 1. No pulmonary embolism. 2. Significant interval progression in chronic interstitial lung disease most likely usual interstitial pneumonia (UIP) pattern versus less likely nonspecific interstitial pneumonia (NSIP) pattern chronic initial lung disease with superimposed mild paraseptal emphysema. 3. Small sliding-type hiatal hernia. Soft Tissue Neck CT 04/15/25 16:42 IMPRESSION: 1. Moderate to severe narrowing of the left carotid artery. Further evaluation advised. 2. Parapharyngeal lymph nodes with the largest measures 1.3 cm. 3. Emphysematous changes of the lungs. <Jax Engel MD - Last Filed: 04/15/25 17:47> Discharge Plan Discharge Clinical Impression: Hemoptysis <Radha Yip PA-C - Last Filed: 04/15/25 15:34> Patient Disposition: Home <DAJA Rausch Last Filed: 04/15/25 15:34> Condition: Stable <DAJA Rausch Last Filed: 04/15/25 15:34> Instructions: Coughing Up Blood (Hemoptysis) (ED) <DAJA Rausch Last Filed: 04/15/25 15:34> Additional Instructions: Follow-up with ENT tomorrow for further evaluation. Started antibiotics in case he have a pneumonia. Return the ER if you have worsening bleeding, you cannot breathe, or you have additional concerns. Use a humidifier at home. <DAJA Rausch Last Filed: 04/15/25 15:34> Patient Language: Slovak <DAJA Rausch Last Filed: 04/15/25 15:34> Prescriptions: New azithromycin 250 mg tablet See Rx Instructions .ROUTE .COMPLEX Qty: 6 0RF Rx Instructions: take 500 mg today (day 1), then 250 mg for 4 days (days 2-5) amoxicillin-pot clavulanate 875-125 mg tablet 1 tablet PO Q12H Qty: 10 0RF No Action albuterol sulfate 90 mcg/actuation HFA aerosol inhaler 2 inh inhalation Q4H PRN (Reason: shortness of breath or wheezing) Qty: 8.5 3RF Spiriva Respimat 2.5 mcg/actuation mist inhalation naproxen sodium 220 mg tablet 220 mg PO DAILY amlodipine 5 mg tablet 5 mg PO DAILY Qty: 90 2RF lisinopril-hydrochlorothiazide 20-12.5 mg tablet 1 tablet PO DAILY Qty: 90 2RF <DAJA Rausch Last Filed: 04/15/25 15:34> Follow-up/Referrals: Gómez Cullen MD [Physician] - 1 Day Jyotsna Jiang MD [Primary Care Provider] - <DAJA Rausch Last Filed: 04/15/25 15:34>
--- NOTE | 2025-04-15 15:25 | ECG_ITS ---
Test Date: 2025-04-15 15:42:37 Measurements Intervals [place] Rate: 57 P: 38 MA: 134 QRS: 19 QRSD: 109 T: 3 QT: 416 QTc: 406 Interpretive Statements SINUS BRADYCARDIA NONSPECIFIC ST AND T WAVE ABNORMALITY No previous ECG available for comparison Electronically Signed On 04-16-2025 12:36:33 CDT by Sylvie Kidd M.D.
[2025-04-15 15:50] LABS: Basophils Percent Auto 0.5 % (0.2-1.2); Eosinophils Absolute Auto 0.1 K/mm3 (0-0.3); Eosinophils Percent Auto 1.3 % (0-4.4); Hematocrit 46.9 % (42.0-52.0); Hemoglobin 15.4 g/dL (14.0-18.0); Immature Granulocyte Absolute 0.03 K/mm3 (0.00-0.031); Immature Granulocyte Percent A 0.4 % (0-0.5); Lymphocytes Absolute Auto 1.18 K/mm3 (0.9-3.2); Lymphocytes Percent Auto 15.2 % (18.3-44.2); Mean Corpuscular HGB Conc 32.8 g/dl (32-36); Mean Corpuscular Hemoglobin 30.5 pg (26-34); Mean Corpuscular Volume 92.9 fl (80-100); Mean Platelet Volume 9.1 fl (7.4-10.4); Monocytes Absolute Auto 0.5 K/mm3 (0.1-0.6); Neutrophils Percent Auto 76.6 % (45.5-73.1); Platelet Count Result 215 k/mm3 (150-375); Red Blood Count 5.05 M/mm3 (4.6-6.20); Red Cell Distribution Width 13.2 % (11.5-14.5); White Blood Count 7.8 K/mm3 (4.5-10.0)
[2025-04-15 16:02] LABS: INR 1.1; Prothrombin Time 14.9 Seconds (11.1-14.7)
[2025-04-15 16:03] LABS: Partial Thromboplastin Time 35.8 Seconds (22.3-36.8)
[2025-04-15 16:04] LABS: Alanine Aminotransferase 18 U/L (6-50); Albumin Level 4.3 g/dL (3.5-5.1); Alkaline Phosphatase 65 U/L (38-126); Anion Gap 4 mmol/L (4-12); Aspartate Amino Transferase 29 U/L (17-59); Bilirubin,Total 0.8 mg/dL (0.2-1.3); Blood Urea Nitrogen 25 mg/dL (9-20); Calcium 9.1 mg/dL (8.4-10.2); Carbon Dioxide 32 mmol/L (22-30); Chloride 101 mmol/L (98-107); Estimated CRCL calculation 95 ml/min; Estimated Glomerular Filt Rate > 60; Glucose 105 mg/dL (65-110); Potassium 4.3 mmol/L (3.4-5.0); Sodium 137 mmol/L (137-145)
[2025-04-15 16:14] LABS: Troponin I < 0.012 ng/mL (0.000-0.034)
[2025-04-15 16:37] VITALS: BP 134/89; PULSE 64; RESP 14; O2SAT 99
--- OUTSIDE RECORDS SUMMARY | 2025-04-15 17:20 | XMS_ITS | Encounter Summary ---
Author Organization [facility] Address [address] [place] [address] Care Team Providers Care Skiver Sock Linings Name Role Phone Hyun Jiang MD Primary Care Provider Encounter Details Date Type Department Care Team (Late st Contact Info) Description 04/27/2021 Lab Requisition [facility] DermPath Lab [address] [place] [id number] Ez Caba MD [address] [place] [address] Social History Tobacco Use Types [...] AM CDT) Case Report Dermatopathology Report Case: [id number] Authorizing Provider: Ez Caba MD Collected: 04/25/2021 03:33 AM Ordering Location: [facility] DermPath Lab Received: 04/27/2021 06:09 AM Pathologist: Kathryn Huerta MD Specimen: Skin, nasal dorsum 2:24 PM CDT DERMATOPATHOLOGY LABORATORY Final Diagnosis Specimen A. SKIN, nasal dorsum: BASAL CELL CARCINOMA, NODULAR TYPE (C44.311) 1 2:24 PM CDT DERMATOPATHOLOGY LABORATORY at 1424 CDT Clinical History [facility]. Path# [id number]. 1 2:24 PM CDT DERMATOPATHOLOGY LABORATORY Gross Description Specimen A: Received is one formalin filled container labeled with the patient's name and designated nasal dorsum. The specimen consists of a shave biopsy measuring [id number]. Jar 0. 1 2:24 PM CDT DERMATOPATHOLOGY [...] characteristic determined by the Dermatopathology Laboratory at [facility], directed by Dr. Olivia Muro. These tests need not be, and therefore are not, approved by the [place] Food and Drug Administration. The tests are used for clinical purposes. Billing Codes Specimen Charges Stain Charges 50579 1 1 2:24 PM CDT DERMATOPATHOLOGY LABORATORY Embedded Images 1 2:24 PM CDT DERMATOPATHOLOGY LABORATORY Pathology/Cytolo gy TISSUE SPECIMEN FROM SKIN / Unknown 04/25/2021 3:33 AM CDT 04/27/2021 6:09 AM CDT us Ez Caba MD LAB - PATHOLOGY/CYTOLOGY ORDER SABINA Final Result DERMATOPATHOLOGY LABORATORY [facility] - Department of Dermatology [address], [address] [phone] documented in this encounter Visit Diagnoses Not on filedocumented in this encounter Care Teams Skiver Sock Linings Relationship Specialty Start Date End Date Hyun Jiang MD [address] [place] [address] PCP - General 07/27/21 documented as of this encounter
--- OUTSIDE RECORDS SUMMARY | 2025-04-15 17:20 | XMS_ITS | Referral Summary ---
Author Organization [facility] Address [address] [place] [id number] Care Team Providers Care Paddock Judge Name Role Phone Hyun Jiang MD Primary Care Provider Berkley Charles RN Unavailable Chloé vailable Allergies No known active allergies Medications amLODIPine (NORVASC) 5 mg tablet 2 Active lisinopril-hydr oCHLOROthiazide (ZESTORETIC) 20-12.5 mg per tablet 2 Active naproxen sodium 220 mg capsule Take 220 mg by mouth every 12 (twelve) hours Active nicotine (NICODERM CQ) [address] 1 patch on the skin daily 30 patch 3 3 Active Additional Information Patient taking differently:1 patch transdermal Every 24 hours,Has but hasn't been using them, Reported on 11/11/2024 tiotropium bromide (Spiriva Respimat) 2.5 mcg/actuation inhaler Inhale 2 puffs daily 3 each 3 4 Active albuterol HFA (PROVENTIL HFA,VENTOLIN HFA,PROAIR HFA) 90 mcg/actuation inhaler Inhale 2 puffs every 6 (six) hours as needed for wheezing 1 each 3 4 Active Active Problems Problem Noted Date Diagnosed Date ILD (interstitial lung disease) Immunizations Immunization Administration Dates Next Due DTaP / IPV 07/12/1975, 0,03/09/1966,01/29,01/01/1966 IPV 08/15/1970,1965,1965 Influenza, Quadrivalent, Adelita l Culture-based MDCK, Antibiotic Free, Intramuscular 09/01/2018 Influenza, Trivalent, IM (MDV) 11/13/2021 Tdap 11/25/2006 Social History Tobacco Use Types Packs/Day Years Used Date Smoking Tobacco: Every Day Cigarettes Smokeless Tobacco: Never Tobacco Cessation:Ready to Q uit: Not Asked; Counseling Given: Not Answered Sex and Gender Information Value Date Recorded Sex Assigned at Not on file Legal Sex Male 4:02 PM CDT Gender Identity Not on file Sexual Orientation Not on file Last Filed Vital Signs Vital Sign Reading Time Taken Comments Blood Pressure 140/76 11/11/2024 8:38 AM ELECTRIC ORGAN CHECKER Pulse 66 11/11/2024 8:38 AM ELECTRIC ORGAN CHECKER Temperature 36.6 C (97.9 F) 11/11/2024 8:38 AM ELECTRIC ORGAN CHECKER Respiratory Rate 16 11/11/2024 8:38 AM ELECTRIC ORGAN CHECKER Oxygen Saturation 96% 11/11/2024 8:38 AM ELECTRIC ORGAN CHECKER Inhaled Oxygen Concentration - - Weight 120.7 kg (266 lb) 11/11/2024 8:38 AM ELECTRIC ORGAN CHECKER Height 184.2 cm (6' 0.5 ) 11/11/2024 8:38 AM ELECTRIC ORGAN CHECKER Body Mass Index 35.58 11/11/2024 8:38 AM ELECTRIC ORGAN CHECKER Plan of Treatment Not on file Insurance [employer] OOS BLUE ACC CHOICE OOS Care Teams Paddock Judge Relationship Specialty Start Date End Date Hyun Jiang MD PCP - General Family Practice 09/05/22 Berkley Charles, RN Registered Nurse Pulmonary Disease 10/30/22
--- OUTSIDE RECORDS SUMMARY | 2025-04-15 17:20 | XMS_ITS | Clinical Summary ---
Author Organization [email or web address] Address [address] [place] [address] Care Team Providers Care Bandoleer Straightener Stamper Name Role Phone Hyun Jiang MD Primary Care Provider Source Comments [email or web address],non-owned Affiliates and Associated Physician Practices is amultiple site organization consisting of ambulatory clinics and hospital sitesin [place], [place], [place] and [place]. This disclosure is being madepursuant to the Care Everywhere program and may not contain all information available regarding this patient. Last updated 18.[email or web address] Social History Tobacco Use Types Packs/Day Years [...] age to complete this topic Care Teams Bandoleer Straightener Stamper Relationship Specialty Start Date End Date Hyun Jiang MD [address] [place] [address] PCP - General 07/27/21
--- OUTSIDE RECORDS SUMMARY | 2025-04-15 17:20 | XMS_ITS | Clinical Summary ---
Author Organization [facility] Address [address] [place] [phone] Care Team Providers Care Dual Rate Dealer Name Role Phone Hyun Jiang MD Primary [...] Influenza, Trivalent, IM (MDV) 11/13/2021 Tdap 11/25/2006 Family History Medical History Relation Name Comments Heart failure Maternal Grandfather Diabetes Maternal Grandmother Hypertension Maternal Grandmother Stroke Maternal Grandmother Diabetes Mother Hypertension Mother Stroke Mother Relation Name Status Comments Maternal Grandfather Maternal Grandmother Mother Social History Tobacco Use Types Packs/Day Years Used Date Smoking Tobacco: Every Day Cigarettes Smokeless Tobacco: Never Tobacco Cessation:Ready to Q uit: Not Asked; Counseling Given: Not Answered Sex and Gender Information Value Date Recorded Sex Assigned at Not on file Legal Sex Male 4:02 PM CDT Gender Identity Not on file Sexual Orientation Not on file Obstetrics History Last Filed Vital Signs Vital Sign Reading Time Taken Comments Blood Pressure 140/76 11/11/2024 8:38 AM FOREST LOGISTICS MANAGER Pulse 66 11/11/2024 8:38 AM FOREST LOGISTICS MANAGER Temperature 36.6 C (97.9 F) 11/11/2024 8:38 AM FOREST LOGISTICS MANAGER Respiratory Rate 16 11/11/2024 8:38 AM FOREST LOGISTICS MANAGER Oxygen Saturation 96% 11/11/2024 8:38 AM FOREST LOGISTICS MANAGER Inhaled Oxygen Concentration - - Weight 120.7 kg (266 lb) 11/11/2024 8:38 AM FOREST LOGISTICS MANAGER Height 184.2 cm (6' 0.5 ) 11/11/2024 8:38 AM FOREST LOGISTICS MANAGER Body Mass Index 35.58 11/11/2024 8:38 AM FOREST LOGISTICS MANAGER Plan of Treatment Health Maintenance Due Date Last Done Comments Colon Cancer Screening-Colonoscopy 1965 Depression Screening 1965 Hepatitis C Screening 1965 Prostate Cancer Screening-PSA 1965 Hepatitis B Screening 1983 Regular Well Visit/Exam 18-64 1983 Pneumococcal vaccine <65 (1 of 2 - PCV) 1984 Zoster Vaccine (1 of 2) 2015 DTaP/Tdap/Td Vaccine (6 - Td or Tdap) 11/25/2016 11/25/2006, 07/12/1975, 06/16/1970, Additional history exists Covid-19 Vaccine (4 - 2023-2 5 season) 2024 11/13/2021, 02/14/2021, 01/17/2021 Influenza Vaccine (#1) 2024 3, 11/13/2021, 09/01/2018 Insurance BLUE ACC CHOICE OOS BLUE [employer] CHOICE OOS Care Teams Dual Rate Dealer Relationship Specialty Start Date End Date Hyun Jiang MD PCP - General Family Practice 09/05/22 Berkley Charles, RN Registered Nurse Pulmonary Disease 10/30/22
[2025-04-15 17:35] LABS: NT Pro B Type Natriuretic Pept 100 pg/mL (19.9-100)
== END 2025-04-15 17:52 | disposition home or self-care (01) ==
PROVIDERS: Physician Assistant; Emergency Provider Emergency Medicine; PCP Family Medicine
DX: R04.2 Hemoptysis (principal); J44.9 Chronic obstructive pulmonary disease, unspecified; J84.10 Pulmonary fibrosis, unspecified; I10 Essential (primary) hypertension; E55.9 Vitamin D deficiency, unspecified; R73.03 Prediabetes; F17.210 Nicotine dependence, cigarettes, uncomplicated; Z79.899 Other long term (current) drug therapy; K44.9 Diaphragmatic hernia without obstruction or gangrene; J84.9 Interstitial pulmonary disease, unspecified; I65.22 Occlusion and stenosis of left carotid artery; R00.1 Bradycardia, unspecified; R94.31 Abnormal electrocardiogram [ECG] [EKG]
CPT/HCPCS: 36415; 70490; 71275; 80053; 83880; 84484; 85025; 85610; 85730; 93005; 99284; Q9967

== ENCOUNTER 2025-06-07 09:47 | Outpatient (CLI) | payer BC, SELFPAY ==
--- OUTSIDE RECORDS SUMMARY | 2025-06-07 09:53 | XMS_ITS | Clinical Summary ---
Author Organization [facility] Address [address] [place] [address] Care Team Providers Care Grinding Wheel Operator Name Role Phone Hyun Jiang MD Primary Care Provider Source Comments [facility],non-owned Affiliates and Associated Physician Practices is amultiple site organization consisting of ambulatory clinics and hospital sitesin [place], [place], [place] and [place]. This disclosure is being madepursuant to the Care Everywhere program and may not contain all information available regarding this patient. Last updated 18.[facility] Social History Tobacco Use Types Packs/Day Years [...] season) 2024 DEPRESSION SCREENING 11/25/2024 INFLUENZA VACCINE (#1) 2025 HIB VACCINE Aged Out No longer [...] age to complete this topic Care Teams Grinding Wheel Operator Relationship Specialty Start Date End Date Hyun Jiang MD [address] [place] [address] PCP - General 07/27/21
--- OUTSIDE RECORDS SUMMARY | 2025-06-07 09:53 | XMS_ITS | Clinical Summary ---
Author Organization [facility] Address [address] [place] [phone] Care Team Providers Care Money Room Supervisor Name Role Phone Hyun Jiang MD Primary Care Provider Berkley Charles RN Unavailable Chloé vailable Allergies No known active allergies Medications amLODIPine (NORVASC) 5 mg tablet 2 Active lisinopril-hyd roCHLOROthiazi de (ZESTORETIC) 20-12.5 mg per tablet 2 Active naproxen sodium 220 mg capsule Take 220 mg by mouth every 12 (twelve) hours Active nicotine (NICODERM CQ) [address] 1 patch on the skin daily 30 patch 3 3 Active albuterol HFA (PROVENTIL HFA,VENTOLIN HFA,PROAIR HFA) 90 mcg/actuation inhaler Inhale 2 puffs every 6 (six) hours as needed for wheezing 1 each 3 4 Active fluticasone propionate (FLONASE) 50 mcg/actuation nasal spray Administer 1 spray into each nostril daily 5 Active tiotropium bromide (Spiriva Respimat) 2.5 mcg/actuation inhaler Inhale 2 puffs daily 3 each 3 5 Active tiotropium bromide (Spiriva Respimat) 2.5 mcg/actuation inhaler Inhale 2 puffs daily 3 each 3 4 06/02/20 25 Discontinu ed(Reorder ) Active Problems Problem Noted Date Diagnosed Date ILD (interstitial lung disease) Encounters Date Type Department Care Team Description 06/02/2025 10:00 AM CDT Office Visit [facility] Pulmonary [address] [facility] 8th [place] [address] [place] [address] Debbie Engel MD ILD (interstitial lung disease) (HCC) (Primary Dx); Dyspnea, unspecified type 06/02/2025 7:44 AM CDT - 06/02/2025 11:59 PM CDT Hospital Encounter [facility] Pulmonary [address] [place] [address] ILD (interstitial lung disease) (HCC) Discharge Disposition: Discharge to home or self care 06/02/2025 7:03 AM CDT - 06/02/2025 11:59 PM CDT Hospital Encounter [facility] [address] [place] [address] Debbie Engel MD Personal history of nicotine dependence Discharge Disposition: Discharge to home or self care from Last 3 Months Immunizations Immunization Administration Dates Next Due DTaP [...] Types Packs/Day Years Used Date Smoking Tobacco: Former Cigarettes Smokeless Tobacco: Never Tobacco Cessation:Counseling Given: Not Answered Sex and Gender Information Value Date Recorded Sex Assigned at Not on file Legal Sex Male 4:02 PM CDT Gender Identity Not on file Sexual Orientation Not on file Obstetrics History Last Filed Vital Signs Vital Sign Reading Time Taken Comments Blood Pressure 151/88 06/02/2025 9:48 AM CDT Pulse 54 06/02/2025 9:48 AM CDT Temperature 36.3 C (97.4 F) 06/02/2025 9:48 AM CDT Respiratory Rate 18 06/02/2025 9:48 AM CDT Oxygen Saturation 97% 06/02/2025 9:48 AM CDT Inhaled Oxygen Concentration - - Weight 123.8 kg (273 lb) 06/02/2025 9:48 AM CDT Height 184.2 cm (6' 0.5) 06/02/2025 9:48 AM CDT Body Mass Index 36.52 06/02/2025 9:48 AM CDT Plan of Treatment Health Maintenance Due Date Last Done Comments Colon Cancer Screening-Colonoscopy 1965 Depression Screening 1965 Hepatitis C Screening 1965 Prostate Cancer Screening-PSA 1965 Hepatitis B Screening 1983 Regular Well Visit/Exam 18-64 1983 Zoster Vaccine (1 of 2) 2015 DTaP/Tdap/Td Vaccine (6 - Td or Tdap) 11/25/2016 11/25/2006, 07/12/1975, 06/16/1970, Additional history exists Covid-19 Vaccine ( season) 2024 11/13/2021, 02/14/2021, 01/17/2021 Influenza Vaccine (#1) 2025 , 11/13/2021, 09/01/2018 Lung Cancer Screening 06/03/2026 06/02/2025 Pneumococcal vaccine <65 Aged Out No longer eligible based on patient's age to complete this topic Procedures Procedure Name Priority Date/Time Associated Diagnosis Comments PULMONARY FUNCTION TEST (PFT) Routine 06/02/2025 9:09 AM CDT ILD (interstitial lung disease) (HCC) CT LUNG CANCER SCREENING Schedule Routine, Read Routine (OP Routine) 06/02/2025 7:39 AM CDT Personal history of nicotine dependence from Last 3 Months Results * Pulmonary Function Test - (06/02/2025 9:09 AM CDT) FVC PRE 2.66 L [facility] FVC %PRE PRED 55 % [facility] FEV1 PRE 2.15 L [facility] FEV1 %PRE PRED 58 % [facility] FEV1/FVC PRE 80.8 % [facility] Anatomical Region Laterality Modality PFT 06/02/2025 8:50 AM CDT Narrative 06/02/2025 5:10 PM CDT Table formatting from the original result was not included. [facility] Division of Pulmonary & Critical Care Medicine [address] [place] [address]; [place] [address]; [place] [id number]; [phone] Pulmonary Function Laboratory Pulmonary Stress Test Simple/Oxygen Assessment Patient: Watson De Jesus Date: 06/02/2025 : 1965 Ht: 72.5 IN Wt: 273 LBS Time (min) Distance (ft)/ Gomez O2 L/M SpO2 HR Syl* BP FEV1 % Pred Rest: RA 98 65 0 147/84 2.15 58 % Walk/Bike: 1 RA 98 75 0 2 RA 93 84 0.5 3 RA 91 93 1 4 RA 91 96 1 5 RA 90 98 2 6 min 0 sec RA 89 96 2 Recovery: 1 RA 96 78 1 172/81 2.22 59% 3 RA 99 65 0.5 *Syl rate of perceived exertion (1-10 dyspnea scale) [place], CHEST 2003; 123:1408 Walk Test Summary: Six Minute Walk Distance: 1425 ft Six-minute Walk Work [distance (m) x body wt (kg)]: 64356 kg.m (normal >60,000kg.m) Oxygen required to maintain SpO2 greater than 90% during six minutes of walkin L/M Comments: O2A- 0 STOPS Interpretation: Breathing room air, SpO2 is normal at rest and during exercise sufficient to increase pulse, SpO2 falls but remains normoxemic . On this basis, SpO2 is adequate at rest breathing room air and while walking breathing room air. This level of exercise is associated with no significant change of FEV1. By signing this report, the attending pulmonary physician certifies that he/she has personally reviewed and interpreted the graphic and numerical data associated with this pulmonary function study and has reviewed and /or edited a preliminary draft report and agrees with the written final report. PFT performed at:->[facility] Adult PFT Lab- [facility]8D Procedure:->Spirometry Procedure:->Oxygen Assessment Titration Pulmonary Function Test Interpretation SPIROMETRY: The FEV1 to FVC ratio is normal. The FEV1 and FVC are reduced in a pattern suggestive of a restrictive abnormality. The inspiratory loop is normal. PULSE OXIMETRY: See Oxygen Assessment/Cardiopulmonary Exercise Study-Simple Impression: There is a moderate restrictive ventilatory defect. However, measurement of lung volumes is suggested to confirm this if clinically indicated. Compared with most recent study, there has been significant interval worsening of the FVC. Compared with most recent study, there has been significant interval worsening of the FEV1. The attending pulmonary physician certifies a physician presence in the [facility] during the administration of aerosolized bronchodilator. The attending pulmonary physician certifies that he/she has reviewed and interpreted the graphic and numerical data of this pulmonary function study and agrees with the written final report. The lower limit of normal for PaO2 and %HbO2 is age dependent. However, the [facility] Pulmonary Function Laboratory defines hypoxemia as a PaO2 <56 mm Hg or a %HbO2 <89%. Starting on November of 2024 the [facility] Pulmonary Function Laboratory utilizes race neutral GLI Global normative equations. us Debbie Engel MD PFT ORDERABLES Final Result * CT Lung Cancer Screening (06/02/2025 7:39 AM CDT) Anatomical Region Laterality Modality Chest N/A Computed Tomogra phy 06/02/2025 9:22 PM CDT Impressions 06/02/2025 9:22 PM CDT 1. LungRADS Category 1 (negative) . Recommend Low dose Screening CT of chest in 12 months. LungRADS Categories: 1 - Negative (no nodules, or only benign calcified or fat-containing nodules) 2 - Benign Appearance or Behavior (nodules with very low likelihood of becoming a clinically active cancer due to size or lack of growth) 3 - Probably Benign (probably benign findings-short term follow up suggested; includes nodules with a low likelihood of becoming a clinically active cancer) 4A,4B,4X - Suspicious (category 3 or 4 nodules with findings for which additional diagnostic testing and/or tissue sampling is recommended) S - Other (clinically significant or potentially clinically significant findings (non-lung cancer) C - Prior Lung Cancer (modifier for patients with a prior diagnosis of lung cancer who return to screening) Electronically signed by: Shlomo Caputo M.D. Narrative 06/02/2025 9:22 PM CDT EXAMINATION: Lung cancer screening CT of the Chest without intravenous contrast HISTORY: Lung Cancer Screening TECHNIQUE: Low radiation dose chest protocol. No intravenous contrast. Reconstructed slice width 1.[address] Dose Index 1.21 mGy. Dose-length product 49.9 mGy-cm. COMPARISON: 05/20/2024 FINDINGS: Lung nodules or findings of lung cancer: None Smoking related lung disease: Extensive mid to lower lung predominant groundglass with traction bronchiectasis. There are also areas of peripheral septal thickening and honeycombing. This likely represents some combination of desquamative interstitial pneumonia and smoking-related fibrosis/usual interstitial pneumonia. The extent of this process is similar to the most recent exam but worse since 08/06/2022. Other findings: Coronary calcifications. Procedure Note Shlomo Caputo MD - 06/02/2025 EXAMINATION: Lung cancer screening CT of the Chest without intravenous contrast HISTORY: Lung Cancer Screening TECHNIQUE: Low radiation dose chest protocol. No intravenous contrast. Reconstructed slice width 1.[address] Dose Index 1.21 mGy. Dose-length product 49.9 mGy-cm. COMPARISON: 05/20/2024 FINDINGS: Lung nodules or findings of lung cancer: None Smoking related lung disease: Extensive mid to lower lung predominant groundglass with traction bronchiectasis. There are also areas of peripheral septal thickening and honeycombing. This likely represents some combination of desquamative interstitial pneumonia and smoking-related fibrosis/usual interstitial pneumonia. The extent of this process is similar to the most recent exam but worse since 08/06/2022. Other findings: Coronary calcifications. IMPRESSION: 1. LungRADS Category 1 (negative) . Recommend Low dose Screening CT of chest in 12 months. LungRADS Categories: 1 - Negative (no nodules, or only benign calcified or fat-containing nodules) 2 - Benign Appearance or Behavior (nodules with very low likelihood of becoming a clinically active cancer due to size or lack of growth) 3 - Probably Benign (probably benign findings-short term follow up suggested; includes nodules with a low likelihood of becoming a clinically active cancer) 4A,4B,4X - Suspicious (category 3 or 4 nodules with findings for which additional diagnostic testing and/or tissue sampling is recommended) S - Other (clinically significant or potentially clinically significant findings (non-lung cancer) C - Prior Lung Cancer (modifier for patients with a prior diagnosis of lung cancer who return to screening) Electronically signed by: Shlomo Caputo M.D. Debbie Engel MD IMG CT PROCEDURES Final Resu lt from Last 3 Months Insurance [employer] CHO[employer] OOS [employer] OOS Care Teams Money Room Supervisor Relationship Specialty Start Date End Date Hyun Jiang MD PCP - General Family Practice 09/05/22 Berkley Chrales, RN Registered Nurse Pulmonary Disease 10/30/22
--- OUTSIDE RECORDS SUMMARY | 2025-06-07 09:53 | XMS_ITS | Encounter Summary ---
Author Organization [facility] Address [address] [place] [address] Care Team Providers Care Regional Cra Name Role Phone Hyun Jiang MD Primary Care Provider Encounter Details Date Type Department Care Team (Late st Contact Info) Description 04/27/2021 Lab Requisition [facility] [address] [place] [id number] Ez Caba MD [address] [place] [address] Social History Tobacco Use Types [...] AM CDT) Case Report Dermatopathology Report Case: [id number] Authorizing Provider: Ez Caba MD Collected: 04/25/2021 03:33 AM Ordering Location: [facility] Received: 04/27/2021 06:09 AM Pathologist: Kathryn Huerta MD Specimen: Skin, nasal dorsum 2:24 PM CDT DERMATOPATHOLOGY LABORATORY Final Diagnosis Specimen A. SKIN, nasal dorsum: BASAL CELL CARCINOMA, NODULAR TYPE (C44.311) 1 2:24 PM CDT DERMATOPATHOLOGY LABORATORY at 1424 CDT Clinical History [facility]. Path# [id number]. 1 2:24 PM CDT DERMATOPATHOLOGY LABORATORY Gross Description Specimen A: Received is one formalin filled container labeled with the patient's name and designated nasal dorsum. The specimen consists of a shave biopsy measuring [id number]. Jar 0. 1 2:24 PM CDT DERMATOPATHOLOGY [...] characteristic determined by the Dermatopathology Laboratory at [facility], directed by Dr. Olivia Muro. These tests need not be, and therefore are not, approved by the [place] Food and Drug Administration. The tests are used for clinical purposes. Billing Codes Specimen Charges Stain Charges 99141 1 1 2:24 PM CDT DERMATOPATHOLOGY LABORATORY Embedded Images 1 2:24 PM CDT DERMATOPATHOLOGY LABORATORY Pathology/Cytolo gy TISSUE SPECIMEN FROM SKIN / Unknown 04/25/2021 3:33 AM CDT 04/27/2021 6:09 AM CDT us Ez Caba MD LAB - PATHOLOGY/CYTOLOGY ORDER SABINA Final Result DERMATOPATHOLOGY LABORATORY [facility] - Department of Dermatology [address], [address] [phone] documented in this encounter Visit Diagnoses Not on filedocumented in this encounter Care Teams Regional Cra Relationship Specialty Start Date End Date Hyun Jiang MD [address] [place] [address] PCP - General 07/27/21 documented as of this encounter
--- OUTSIDE RECORDS SUMMARY | 2025-06-07 09:53 | XMS_ITS | Referral Summary ---
Author Organization [facility] Address [address] [place] [phone] Care Team Providers Care Gastroenterologist Name Role Phone Hyun Jiang MD Primary Care Provider Berkley Charles RN Unavailable Chloé vailable Encounters Date Type Department Care Team Description 06/02/2025 7:03 AM CDT - 06/02/2025 11:59 PM CDT Hospital Encounter [facility]) [address] [place] [address] Debbie Engel MD Personal history of nicotine dependence Discharge Disposition: Discharge to home or self care 06/02/2025 10:00 AM CDT Office Visit [facility] Pulmonary [address] [place] [address] 8th [address] [place] [phone] Debbie Engel MD ILD (interstitial lung disease) (HCC) (Primary Dx); Dyspnea, unspecified type 06/02/2025 7:44 AM CDT - 06/02/2025 11:59 PM CDT Hospital Encounter [facility] Pulmonary [address] [place] [address] ILD (interstitial lung disease) (HCC) Discharge Disposition: Discharge to home or self care from Last 3 Months Allergies No known active allergies Medications amLODIPine [...] 06/02/2025 9:48 AM CDT Plan of Treatment Not on file Procedures Procedure Name Priority Date/Time Associated Diagnosis Comments PULMONARY FUNCTION TEST (PFT) Routine 06/02/2025 9:09 AM CDT ILD (interstitial lung disease) (HCC) CT LUNG CANCER SCREENING Schedule Routine, Read Routine (OP Routine) 06/02/2025 7:39 AM CDT Personal history of nicotine dependence from Last 3 Months Results * Pulmonary Function Test - (06/02/2025 9:09 AM CDT) FVC PRE 2.[address] [facility] FVC %PRE PRED 55 % [facility] FEV1 PRE 2.15 L [facility] FEV1 %PRE PRED 58 % [facility] FEV1/FVC PRE 80.8 % [facility] Anatomical Region Laterality Modality PFT 06/02/2025 8:50 AM CDT Narrative 06/02/2025 5:10 PM CDT Table formatting from the original result was not included. [facility] Division of Pulmonary & Critical Care Medicine [address] [place] [address]; [place] [address] [facility]; [place] [address]; [phone] Pulmonary Function Laboratory Pulmonary Stress Test Simple/Oxygen [...] Work [distance (m) x body wt (kg)]: 65274 kg.m (normal >60,000kg.m) Oxygen required to maintain [...] with the written final report. PFT performed at:->[facility] Adult PFT Lab- [facility] Procedure:->Spirometry Procedure:->Oxygen Assessment [...] and %HbO2 is age dependent. However, the [facility] Pulmonary Function Laboratory defines hypoxemia as a PaO2 <56 mm Hg or a %HbO2 <89%. Starting on November of 2024 the [facility] Pulmonary Function Laboratory utilizes race neutral GLI [...] Resu lt from Last 3 Months Insurance [facility] CHOICE OOS [facility]UE [facility] CHOICE OOS Care Teams Gastroenterologist Relationship Specialty Start Date End Date Hyun Jiang MD PCP - General Family Practice 09/05/22 Berkley Charles, RN Registered Nurse Pulmonary Disease 10/30/22
[2025-06-07 17:35] LABS: Alanine Aminotransferase 16 U/L (6-50); Albumin Level 4.1 g/dL (3.5-5.1); Alkaline Phosphatase 62 U/L (38-126); Anion Gap 9 mmol/L (4-12); Aspartate Amino Transferase 34 U/L (17-59); Bilirubin,Total 1.0 mg/dL (0.2-1.3); Blood Urea Nitrogen 19 mg/dL (9-20); Calcium 9.1 mg/dL (8.4-10.2); Carbon Dioxide 26 mmol/L (22-30); Chloride 103 mmol/L (98-107); Estimated Glomerular Filt Rate > 60; Glucose 99 mg/dL (65-110); Potassium 3.7 mmol/L (3.4-5.0); Sodium 138 mmol/L (137-145); Total Protein 7.5 g/dL (6.3-8.2)
[2025-06-07 17:36] LABS: Hematocrit 45.3 % (42.0-52.0); Hemoglobin 14.7 g/dL (14.0-18.0); Immature Granulocyte Percent A 0.3 % (0-0.5); Lymphocytes Absolute Auto 1.28 K/mm3 (0.9-3.2); Mean Corpuscular HGB Conc 32.5 g/dl (32-36); Mean Corpuscular Hemoglobin 30.1 pg (26-34); Mean Corpuscular Volume 92.8 fl (80-100); Nucleated Red Blood Cells Absolute Auto 0.000 K/mm3 (0.0-0.012); Nucleated Red Blood Cells Perc 0.0 % (0.0-0.2); Platelet Count Result 146 k/mm3 (150-375); Red Blood Count 4.88 M/mm3 (4.6-6.20); White Blood Count 6.2 K/mm3 (4.5-10.0)
[2025-06-07 18:16] LABS: Hemoglobin A1C 6.0 % (<5.7)
== END 2025-06-07 09:48 | disposition home or self-care (01) ==
LOC: ANHGOSHLAB 09:48
PROVIDERS: PCP Family Medicine; Visit Provider Nurse Practitioner Family
DX: R73.03 Prediabetes (principal); I10 Essential (primary) hypertension
CPT/HCPCS: 36415; 80053; 83036; 85025